=== PATIENT | female | born 1935 | race Two or more races ===

== ENCOUNTER 2017-12-14 16:04 | Outpatient (CLI) | payer OTHER ==
[~2017-12-14 16:04] MED LIST: ACIDOPHILU PO; ALDACTONE25 MG PO; B TREX PO; CALTRATE PLUS T1 TAB PO; CIPRO500 MG; HUMALOG MIX 75/10 ML SQ; HUMALOG MIX 75/10 ML SUBCUTANEO; HYDROCODONE-CHLORPH SUSP 115ML PO; HYOSCYAMINE0.15 MG; INDERAL LA120 MG PO; LOTREL 5/40 MG1 CAP PO; METRONIDAZOLE500 MG; NEURONTIN300 MG PO; NORVASC 5MG TAB PO; NORVASC2.5 M1 PO; OMEGA-31000 MG PO; OSEL75CA PO; PEPCID40 MG PO; PLAVIX75 MG PO; PLETAL50 MG PO; POM (MEDICAMENTO EN PISO) PO; PRILOSEC20 MG PO; Pulmicort 0.5 MG/2 ML AMPUL IH; RESTORIL15 MG PO; RESTORIL30 MG PO; SINGULAIR 10MG10 MG PO; SYNTHROID50 MCG; SYNTHROID50 MCG PO; Synthroid PO; TESSALON PERLE100 M1 PO; ULTRAM50 MG PO; XOPENEX0.63 MG/3 IH; ZETIA10 MG PO; ZOFRAN4 MG PO; [UNRECOGNIZED DRUG - OTHER] PO
== END 2017-12-14 16:20 | disposition home or self-care (01) ==
LOC: SONOGRAMA 16:04
DX: E04.1 Nontoxic single thyroid nodule (principal)

== ENCOUNTER 2017-12-30 13:58 | Emergency (ER) | payer OTHER ==
[~2017-12-30] VITALS: Ht 149.9 cm; Wt 65.8 kg
== END 2017-12-30 19:58 ==
LOC: ER 13:58
DX: K29.70 Gastritis, unspecified, without bleeding (principal)

== ENCOUNTER 2018-02-09 13:22 | Outpatient (CLI) | payer OTHER | END 2018-02-09 13:25 | disposition home or self-care (01) | LOC: MAMO-SONO 13:22 | DX: Z12.31 Encounter for screening mammogram for malignant neoplasm of breast (principal); C50.411 Malignant neoplasm of upper-outer quadrant of right female breast ==

== ENCOUNTER 2018-06-24 10:39 | Emergency (ER) | payer OTHER ==
[~2018-06-24] VITALS: Ht 147.3 cm; Wt 67.1 kg
[2018-06-24] MEDS ORDERED: XOPENEX0.63 MG/3 (11:07)
== END 2018-06-24 14:30 | disposition home or self-care (01) ==
LOC: ER 10:39
DX: L60.0 Ingrowing nail (principal); E11.65 Type 2 diabetes mellitus with hyperglycemia; K29.60 Other gastritis without bleeding

== ENCOUNTER 2018-07-02 08:09 | Emergency (ER) | payer OTHER ==
[~2018-07-02] VITALS: Ht 147.3 cm; Wt 66.7 kg
[~2018-07-02 08:09] MED LIST changes: +XOPENEX0.63 MG/3
== END 2018-07-02 15:25 | disposition home or self-care (01) ==
LOC: ER 08:09
DX: R19.7 Diarrhea, unspecified (principal)

== ENCOUNTER 2018-08-28 07:39 | Outpatient (CLI) | payer OTHER | END 2018-08-28 15:00 | disposition home or self-care (01) | LOC: LAB 07:39 | DX: C50.411 Malignant neoplasm of upper-outer quadrant of right female breast (principal) ==

== ENCOUNTER → 2018-08-28 | Outpatient (CLI) | payer OTHER | END | disposition home or self-care (01) | LOC: NUCLEAR 08:47 | DX: M81.0 Age-related osteoporosis without current pathological fracture (principal) ==

== ENCOUNTER 2018-11-27 19:13 | Emergency (ER) | payer OTHER ==
[~2018-11-27] VITALS: Ht 149.9 cm; Wt 64.9 kg
== END 2018-11-27 23:20 | disposition home or self-care (01) ==
LOC: ER 19:13
DX: R42 Dizziness and giddiness (principal); R51 Headache; I16.0 Hypertensive urgency; I10 Essential (primary) hypertension

== ENCOUNTER 2019-02-05 11:28 | Outpatient (CLI) | payer OTHER | END 2019-02-05 13:11 | disposition home or self-care (01) | LOC: RAD 11:28 → MRI 13:45 | DX: E04.1 Nontoxic single thyroid nodule (principal); R42 Dizziness and giddiness | CPT/HCPCS: 70551 ==

== ENCOUNTER 2019-02-22 10:32 | Inpatient (IN) | payer OTHER ==
[~2019-02-22] VITALS: Ht 147.3 cm; Wt 61.7 kg
--- NOTE | 2019-02-22 10:47 | NUR ---
PTE REFIERE JAYANT DOLOR ABDOMINAL DESDE HACE UNOS GARCIA SE SAIDA S/V YS EUBICA EN AREA DE OBSERVACION
--- NOTE | 2019-02-22 11:40 | NUR ---
PACIENTE EVALUADA POR DR ALVES. [facility] ORIENTA A PACIENTE SOBRE ORDENES MEDICAS. COLECTA MUESTRAS DE LABORATORIO ORDENADAS. CANALIZA PACIENTE Y COLOCA IV FLUID ORDENADO; CANALIZACION JUNE DE EDEMA Y/O ENROJECIMIENTO. PREMA CONTRASTE PARA CT SCAN. PACIENTE EN ESPERA DE RESULTADOS DE LABORATORIO Y CT SCAN PARA RE-EVALUACION MEDICA.
[2019-02-27] MEDS ORDERED: XOPENEX0.63 MG/3 IH (13:07)
[2019-02-27] MEDS ORDERED: SINGULAIR 10MG10 MG PO (13:07)
[2019-02-27] MEDS ORDERED: PREVACID30 MG PO (13:07)
[2019-02-27] MEDS ORDERED: SYNTHROID50 MCG PO (13:07)
[2019-02-27] MEDS ORDERED: TEMAZEPAM30 MG PO (13:07)
[2019-02-27] MEDS ORDERED: CIPROFLOXACIN500 MG PO (13:07)
[2019-02-27] MEDS ORDERED: ACIDOPHILUS-PE1 EAC2 PO (13:07)
[2019-02-27] MEDS ORDERED: FLAGYL500MG PO (13:07)
[2019-02-27] MEDS ORDERED: LOTREL 5-40 MG1 EACH PO (13:07)
[2019-02-27] MEDS ORDERED: NEURONTIN300 MG PO (13:07)
[2019-02-27] MEDS ORDERED: HUMALOG MI100 UNIT/2 SUBCUTANEO ×2 (13:07)
[2019-02-27] MEDS ORDERED: PLAVIX75 MG PO (13:07)
[2019-02-27] MEDS ORDERED: INDERAL LA120 MG PO (13:07)
== END 2019-02-27 13:27 | disposition home or self-care (01) | DRG 392 ==
LOC: ER 10:32 → SEC-K 17:59 → SURH 17:59
PROVIDERS: ADMIT Internal Medicine Geriatric Medicine
PROC: BW21Y0Z Computerized Tomography (CT Scan) of Abdomen and Pelvis using Other Contrast, Unenhanced and Enhanced (ICD-10-PCS; principal; 2019-02-22)
DX: K57.32 Diverticulitis of large intestine without perforation or abscess without bleeding (principal); E11.9 Type 2 diabetes mellitus without complications; R10.32 Left lower quadrant pain; I11.9 Hypertensive heart disease without heart failure; E86.0 Dehydration; E87.8 Other disorders of electrolyte and fluid balance, not elsewhere classified; E03.8 Other specified hypothyroidism; Z79.4 Long term (current) use of insulin

== ENCOUNTER 2019-03-13 09:52 | Outpatient (CLI) | payer OTHER ==
[~2019-03-13 09:52] MED LIST changes: +ACIDOPHILUS-PE1 EAC2 PO; +CIPROFLOXACIN500 MG PO; +FLAGYL500MG PO; +HUMALOG MI100 UNIT/2 SUBCUTANEO; +LOTREL 5-40 MG1 EACH PO; +PREVACID30 MG PO; +TEMAZEPAM30 MG PO
== END 2019-03-13 09:55 | disposition home or self-care (01) ==
LOC: MAMO-SONO 09:52
DX: C50.411 Malignant neoplasm of upper-outer quadrant of right female breast (principal)

== ENCOUNTER 2020-02-19 19:22 | Emergency (ER) | payer OTHER ==
[~2020-02-19] VITALS: Ht 147.3 cm; Wt 63.5 kg
== END 2020-02-19 23:01 | disposition home or self-care (01) ==
LOC: ER 19:22
DX: K52.9 Noninfective gastroenteritis and colitis, unspecified (principal)

== ENCOUNTER → 2020-03-24 | Outpatient (CLI) | payer OTHER | END | disposition home or self-care (01) | LOC: MAMO-SONO 14:00 | PROVIDERS: ATTEND Internal Medicine Hematology & Oncology | DX: C50.411 Malignant neoplasm of upper-outer quadrant of right female breast (principal) ==

== ENCOUNTER 2020-05-15 10:08 | Outpatient (CLI) | payer OTHER | END 2020-05-15 10:16 | disposition home or self-care (01) | LOC: RAD 10:08 | PROVIDERS: ATTEND Physical Medicine & Rehabilitation | DX: M17.10 Unilateral primary osteoarthritis, unspecified knee (principal); M77.8 Other enthesopathies, not elsewhere classified ==

== ENCOUNTER 2020-11-29 13:33 | Emergency (ER) | payer OTHER ==
[~2020-11-29] VITALS: Ht 147.3 cm; Wt 68.0 kg
== END 2020-11-29 14:31 | disposition home or self-care (01) ==
LOC: ER 13:33
DX: H11.31 Conjunctival hemorrhage, right eye (principal)

== ENCOUNTER 2021-03-05 08:00 | Outpatient (CLI) | payer OTHER ==
[~2021-03-05 08:00] MED LIST changes: +LIDOCAINE PAIN1 EACH TOP; +ULTRACET PO
[2021-03-20] MEDS ORDERED: ULTRACET PO (11:06)
[2021-03-20] MEDS ORDERED: LIDODERM1 EACH TOP (11:06)
[2021-03-27] MEDS ORDERED: HYMOVIS24 MG/3 ML IU (10:31)
== END 2021-03-05 08:30 | disposition home or self-care (01) ==
LOC: PPH VACUNA 08:00
DX: Z23 Encounter for immunization (principal)

== ENCOUNTER 2021-03-24 10:34 | Outpatient (CLI) | payer OTHER ==
[~2021-03-24 10:34] MED LIST changes: +LIDODERM1 EACH TOP
[2021-03-27] MEDS ORDERED: HYMOVIS24 MG/3 ML IU (10:31)
== END 2021-03-24 10:49 | disposition home or self-care (01) ==
LOC: MRI 10:34
PROVIDERS: ATTEND Physical Medicine & Rehabilitation
DX: M17.11 Unilateral primary osteoarthritis, right knee (principal); M25.562 Pain in left knee; M25.461 Effusion, right knee
CPT/HCPCS: 73718

== ENCOUNTER 2021-04-14 08:10 | Outpatient (CLI) | payer OTHER | END 2021-04-14 15:00 | disposition home or self-care (01) | LOC: LAB 08:10 | PROVIDERS: ATTEND Internal Medicine Hematology & Oncology | DX: C50.411 Malignant neoplasm of upper-outer quadrant of right female breast (principal) ==

== ENCOUNTER → 2021-04-14 | Outpatient (CLI) | payer OTHER ==
[~2021-04-14] MED LIST changes: +HYMOVIS24 MG/3 ML IU
== END | disposition home or self-care (01) ==
LOC: MAMO-SONO 09:52
PROVIDERS: ATTEND Internal Medicine Hematology & Oncology
DX: R92.1 Mammographic calcification found on diagnostic imaging of breast (principal); C50.411 Malignant neoplasm of upper-outer quadrant of right female breast

== ENCOUNTER 2021-04-16 13:09 | Outpatient (CLI) | payer OTHER | END 2021-04-16 13:19 | disposition home or self-care (01) | LOC: RAD 13:09 | PROVIDERS: ATTEND Orthopaedic Surgery Sports Medicine | DX: M17.0 Bilateral primary osteoarthritis of knee (principal) ==

== ENCOUNTER 2021-10-28 09:34 | Outpatient (CLI) | payer OTHER | END 2021-10-28 09:35 | disposition home or self-care (01) | LOC: NUCLEAR 09:34 | DX: I70.213 Atherosclerosis of native arteries of extremities with intermittent claudication, bilateral legs (principal); I87.2 Venous insufficiency (chronic) (peripheral); E08.40 Diabetes mellitus due to underlying condition with diabetic neuropathy, unspecified ==

== ENCOUNTER → 2021-10-28 14:31 | Outpatient (CLI) | payer OTHER | END | disposition home or self-care (01) | LOC: LAB 10-27 07:00 | PROVIDERS: ATTEND Internal Medicine Endocrinology, Diabetes & Metabolism | DX: M10.9 Gout, unspecified (principal); D64.9 Anemia, unspecified; E11.610 Type 2 diabetes mellitus with diabetic neuropathic arthropathy; E13.9 Other specified diabetes mellitus without complications; R05.9 Cough, unspecified; R06.02 Shortness of breath; R50.9 Fever, unspecified; Z20.828 Contact with and (suspected) exposure to other viral communicable diseases; Z85.3 Personal history of malignant neoplasm of breast ==

== ENCOUNTER 2021-10-30 08:00 | Outpatient (CLI) | payer OTHER | END 2021-10-30 08:30 | disposition home or self-care (01) | LOC: PPH VACUNA 08:00 | PROVIDERS: ATTEND Emergency Medicine Pediatric Emergency Medicine | DX: Z23 Encounter for immunization (principal) ==

== ENCOUNTER 2021-10-30 08:46 | Outpatient (CLI) | payer OTHER | END 2021-10-30 08:48 | disposition home or self-care (01) | LOC: NUCLEAR 08:46 | DX: I70.213 Atherosclerosis of native arteries of extremities with intermittent claudication, bilateral legs (principal); E08.40 Diabetes mellitus due to underlying condition with diabetic neuropathy, unspecified; I87.2 Venous insufficiency (chronic) (peripheral); Z88.8 Allergy status to other drugs, medicaments and biological substances; Z91.013 Allergy to seafood; Z91.048 Other nonmedicinal substance allergy status ==

== ENCOUNTER 2021-12-01 12:38 | Outpatient (CLI) | payer OTHER | END 2021-12-01 12:40 | disposition home or self-care (01) | LOC: SONOGRAMA 12:38 | PROVIDERS: ATTEND Internal Medicine Hematology & Oncology | DX: Z85.3 Personal history of malignant neoplasm of breast (principal); E04.0 Nontoxic diffuse goiter ==

== ENCOUNTER 2022-04-08 09:21 | Emergency (ER) | payer OTHER ==
[~2022-04-08] VITALS: Ht 147.3 cm; Wt 67.1 kg
[2022-04-08] MEDS ORDERED: BUDESONIDE0.5 MG/2 M PO (09:52)
== END 2022-04-08 17:34 | disposition home or self-care (01) ==
LOC: ER 09:21
DX: R10.84 Generalized abdominal pain (principal); K57.32 Diverticulitis of large intestine without perforation or abscess without bleeding; E11.9 Type 2 diabetes mellitus without complications; Z79.4 Long term (current) use of insulin; I10 Essential (primary) hypertension; Z20.822 Contact with and (suspected) exposure to COVID-19; Z88.8 Allergy status to other drugs, medicaments and biological substances; Z88.6 Allergy status to analgesic agent; Z91.013 Allergy to seafood

== ENCOUNTER 2022-04-27 07:45 | Outpatient (CLI) | payer OTHER ==
[~2022-04-27 07:45] MED LIST changes: +BUDESONIDE0.5 MG/2 M PO
== END 2022-04-27 09:10 | disposition home or self-care (01) ==
LOC: MAMO-SONO 07:45
PROVIDERS: ATTEND Internal Medicine Hematology & Oncology
DX: C50.411 Malignant neoplasm of upper-outer quadrant of right female breast (principal); Z85.3 Personal history of malignant neoplasm of breast

== ENCOUNTER 2022-04-27 07:46 | Outpatient (CLI) | payer OTHER | END 2022-04-27 07:47 | disposition home or self-care (01) | LOC: LAB 07:46 | PROVIDERS: ATTEND Internal Medicine Hematology & Oncology | DX: D64.9 Anemia, unspecified (principal); E03.9 Hypothyroidism, unspecified; E11.69 Type 2 diabetes mellitus with other specified complication; Z85.3 Personal history of malignant neoplasm of breast; C50.411 Malignant neoplasm of upper-outer quadrant of right female breast ==

== ENCOUNTER 2022-05-31 11:10 | Outpatient (CLI) | payer OTHER | END 2022-05-31 11:20 | disposition home or self-care (01) | LOC: PPH VACUNA 11:10 | PROVIDERS: ATTEND Emergency Medicine Pediatric Emergency Medicine | DX: Z23 Encounter for immunization (principal) ==

== ENCOUNTER 2022-10-26 14:06 | Outpatient (CLI) | payer OTHER | END 2022-10-26 14:07 | disposition home or self-care (01) | LOC: NUCLEAR 14:06 | DX: M85.9 Disorder of bone density and structure, unspecified (principal); M16.12 Unilateral primary osteoarthritis, left hip; M25.552 Pain in left hip ==

== ENCOUNTER → 2022-10-26 | Outpatient (CLI) | payer OTHER | END | disposition home or self-care (01) | LOC: RAD 13:29 | DX: M85.9 Disorder of bone density and structure, unspecified (principal); M16.12 Unilateral primary osteoarthritis, left hip; M25.552 Pain in left hip ==

== ENCOUNTER 2023-01-01 12:27 | Inpatient (IN) | payer OTHER ==
[~2023-01-01] VITALS: Ht 147.3 cm; Wt 63.0 kg
[2023-01-01] MEDS ORDERED: NEURONTIN300 MG PO (12:57)
== END 2023-01-05 18:10 | disposition home or self-care (01) | DRG 392 ==
LOC: ER 12:27 → SURH 22:36
PROVIDERS: ADMIT Internal Medicine Geriatric Medicine; ATTEND Internal Medicine Geriatric Medicine
PROC: BW21YZZ Computerized Tomography (CT Scan) of Abdomen and Pelvis using Other Contrast (ICD-10-PCS; 2023-01-01)
PROC: 4A12X4Z Monitoring of Cardiac Electrical Activity, External Approach (ICD-10-PCS; principal; 2023-01-02)
DX: K57.32 Diverticulitis of large intestine without perforation or abscess without bleeding (principal); E87.1 Hypo-osmolality and hyponatremia; E11.9 Type 2 diabetes mellitus without complications; Z79.4 Long term (current) use of insulin; G47.33 Obstructive sleep apnea (adult) (pediatric); I25.10 Atherosclerotic heart disease of native coronary artery without angina pectoris; I11.9 Hypertensive heart disease without heart failure; Z20.822 Contact with and (suspected) exposure to COVID-19

== ENCOUNTER 2023-05-03 10:36 | Outpatient (CLI) | payer OTHER | END 2023-05-03 10:57 | disposition home or self-care (01) | LOC: MAMO-SONO 10:36 | PROVIDERS: ATTEND Internal Medicine Hematology & Oncology | DX: Z12.31 Encounter for screening mammogram for malignant neoplasm of breast (principal); C50.411 Malignant neoplasm of upper-outer quadrant of right female breast; Z85.3 Personal history of malignant neoplasm of breast ==

== ENCOUNTER 2023-07-01 11:17 | Emergency (ER) | payer OTHER ==
[~2023-07-01] VITALS: Ht 147.3 cm; Wt 66.7 kg
[2023-07-01 12:58] LABS: HEMATOCRIT 31.8 % (36.0-45.00); HEMOGLOBIN 10.9 g/dL (12.0-15.00); MEAN CELL VOLUME 90.3 fL (80.00-100.00); MEAN CORPUSCULAR HEMOGLOBIN 31.1 pg (27.00-32.0); MEAN CORPUSCULAR HGB CONC 34.4 g/dl (32.0-36.0); PLATELET COUNT 234 K/uL (150-450); RED BLOOD COUNT 3.52 M/uL (4.00-6.00); RED CELL DISTRIBUTION WIDTH 14.8 % (11.5-14.5)
[2023-07-01 13:25] LABS: CREATININE SERUM 1.08 mg/dL (0.55-1.02); GFR 48.22; POTASSIUM 4.48 mEq/L (3.5-5.1)
[2023-07-01 13:28] LABS: C-REACTIVE PROTEIN 0.53 MG/DL (0.00-0.29)
[2023-07-01 13:50] LABS: URINE BACTERIA 547.7 uL (0.0-1933); URINE WBC 3.3 uL (0.0-23.2)
[2023-07-01 13:58] LABS: URINE APPEARANCE Clear; URINE BILIRRUBIN Negative (NEGATIVE); URINE BLOOD Negative; URINE COLOR Yellow; URINE LEUKOCYTE Negative; URINE NITRATE Negative; URINE PROTEIN 30 (NEGATIVE); URINE UROBILINOGEN 0.2 E.U./dl
[2023-07-01 14:00] LABS: URINE EPITHELIAL CELLS 0.1 uL (0.0-38.8); URINE GLUCOSE 250 MG/DL (NEGATIVE)
== END 2023-07-01 18:29 | disposition home or self-care (01) ==
LOC: ER 11:18
PROVIDERS: Emergency Medicine
DX: R10.31 Right lower quadrant pain (principal); J45.909 Unspecified asthma, uncomplicated; M81.8 Other osteoporosis without current pathological fracture; Z85.89 Personal history of malignant neoplasm of other organs and systems; E11.65 Type 2 diabetes mellitus with hyperglycemia; Z79.4 Long term (current) use of insulin; K57.90 Diverticulosis of intestine, part unspecified, without perforation or abscess without bleeding; I10 Essential (primary) hypertension; Z91.048 Other nonmedicinal substance allergy status
CPT/HCPCS: 36415; 74177; 96365; 96366; 99284; J7030; Q9965

== ENCOUNTER 2023-10-21 12:42 | Emergency (ER) | payer OTHER ==
[~2023-10-21] VITALS: Ht 149.9 cm; Wt 60.8 kg
[2023-10-21] MEDS ORDERED: 0.9 % SODIUM CHLORIDE 1,000 ML IV SCH (14:00)
[2023-10-21 14:25] LABS: HEMATOCRIT 35.3 % (36.0-45.00); HEMOGLOBIN 11.9 g/dL (12.0-15.00); MEAN CELL VOLUME 90.3 fL (80.00-100.00); MEAN CORPUSCULAR HEMOGLOBIN 30.4 pg (27.00-32.0); MEAN CORPUSCULAR HGB CONC 33.6 g/dl (32.0-36.0); PLATELET COUNT 257 K/uL (150-450); RED BLOOD COUNT 3.91 M/uL (4.00-6.00); RED CELL DISTRIBUTION WIDTH 13.7 % (11.5-14.5)
[2023-10-21 14:26] LABS: URINE APPEARANCE Turbid; URINE BILIRRUBIN Negative (NEGATIVE); URINE BLOOD Small; URINE COLOR Yellow; URINE GLUCOSE Negative (NEGATIVE); URINE LEUKOCYTE Large; URINE NITRATE Negative; URINE UROBILINOGEN 0.2 E.U./dl
[2023-10-21 14:27] LABS: URINE EPITHELIAL CELLS 3.2 uL (0.0-38.8); URINE WBC 4238.2 uL (0.0-23.2)
[2023-10-21 14:57] LABS: URINE BACTERIA > 9821.5 uL (0.0-1933); URINE PROTEIN 100 (NEGATIVE)
[2023-10-21 14:58] LABS: CALCIUM 8.9 mg/dL (8.5-10.1); CREATININE SERUM 1.15 mg/dL (0.55-1.02); GFR 44.74; POTASSIUM 4.27 mEq/L (3.5-5.1)
[2023-10-21] MEDS ORDERED: FAMOTIDINE/PF 20 MG/2 ML VIAL IV ONE (19:45)
[2023-10-21] MEDS ORDERED: CEFTRIAXONE SODIUM 1,000 MG VIAL IV ONE (19:45)
[2023-10-21] MEDS ORDERED: BACTRIM DS TAB1 EACH PO (20:37)
== END 2023-10-21 20:49 | disposition home or self-care (01) ==
LOC: ER 12:43
PROVIDERS: Emergency Medicine
DX: N39.0 Urinary tract infection, site not specified (principal); K57.30 Diverticulosis of large intestine without perforation or abscess without bleeding; I10 Essential (primary) hypertension; Z88.8 Allergy status to other drugs, medicaments and biological substances; Z88.6 Allergy status to analgesic agent; Z91.013 Allergy to seafood
CPT/HCPCS: 36415; 74176; 96365; 96366; 99284; J0696; J3490

== ENCOUNTER 2024-05-07 13:51 | Outpatient (CLI) | payer OTHER ==
[~2024-05-07 13:51] MED LIST changes: +BACTRIM DS TAB1 EACH PO
== END 2024-05-07 13:57 | disposition home or self-care (01) ==
LOC: MAMO-SONO 13:51
PROVIDERS: ATTEND Internal Medicine Hematology & Oncology
DX: C50.411 Malignant neoplasm of upper-outer quadrant of right female breast (principal); Z85.3 Personal history of malignant neoplasm of breast; Z12.31 Encounter for screening mammogram for malignant neoplasm of breast

== ENCOUNTER → 2025-05-14 10:25 | Outpatient (CLI) | payer OTHER | END | disposition home or self-care (01) | LOC: MAMO-SONO 10:07 → RAD 10:07 | PROVIDERS: ATTEND Internal Medicine Hematology & Oncology | DX: R06.02 Shortness of breath (principal); C50.411 Malignant neoplasm of upper-outer quadrant of right female breast; Z85.3 Personal history of malignant neoplasm of breast ==